=== PATIENT | female | born 1955 | race Asian ===

== ENCOUNTER 2019-03-24 07:53 | Day surgery (SDC) | payer OTHER ==
[~2019-03-24] VITALS: Ht 165.1 cm; Wt 69.9 kg
== END 2019-03-24 09:30 | disposition home or self-care (01) ==
LOC: OR 07:53
PROC: 3E0R33Z Introduction of Anti-inflammatory into Spinal Canal, Percutaneous Approach (ICD-10-PCS; principal; 2019-03-24)
PROC: B01BYZZ Fluoroscopy of Spinal Cord using Other Contrast (ICD-10-PCS; 2019-03-24)
DX: M50.123 Cervical disc disorder at C6-C7 level with radiculopathy (principal)
CPT/HCPCS: J1020

== ENCOUNTER → 2019-06-29 | Day surgery (SDC) | payer OTHER | LOC: OR 05:30 | PROC: 3E0R33Z Introduction of Anti-inflammatory into Spinal Canal, Percutaneous Approach (ICD-10-PCS; principal; 2019-06-29) | PROC: B01BYZZ Fluoroscopy of Spinal Cord using Other Contrast (ICD-10-PCS; 2019-06-29) | DX: M50.123 Cervical disc disorder at C6-C7 level with radiculopathy (principal) | CPT/HCPCS: J1020 ==

== ENCOUNTER 2020-03-30 11:31 | Day surgery (SDC) | payer OTHER ==
[~2020-03-30] VITALS: Ht 30.5 cm; Wt 0.5 kg
== END 2020-03-30 12:55 | disposition home or self-care (01) ==
LOC: OR 11:31
PROC: 3E0R33Z Introduction of Anti-inflammatory into Spinal Canal, Percutaneous Approach (ICD-10-PCS; principal; 2020-03-30)
PROC: B01BYZZ Fluoroscopy of Spinal Cord using Other Contrast (ICD-10-PCS; 2020-03-30)
DX: M50.123 Cervical disc disorder at C6-C7 level with radiculopathy (principal)
CPT/HCPCS: J1020

== ENCOUNTER 2020-07-18 09:34 | Day surgery (SDC) | payer OTHER | END 2020-07-18 10:38 | disposition home or self-care (01) | LOC: OR 09:34 | PROC: 3E0T3TZ Introduction of Destructive Agent into Peripheral Nerves and Plexi, Percutaneous Approach (ICD-10-PCS; principal; 2020-07-18) | PROC: BR16YZZ Fluoroscopy of Lumbar Facet Joint(s) using Other Contrast (ICD-10-PCS; 2020-07-18) | DX: M47.817 Spondylosis without myelopathy or radiculopathy, lumbosacral region (principal) | CPT/HCPCS: J2001 ==